=== PATIENT | female | born 2000 | race Caucasian/White ===

== ENCOUNTER → 2021-08-16 13:35 | Outpatient (BNVA) | payer OTHER, SELFPAY | PROVIDERS: Family Provider Nurse Practitioner Family; PCP Nurse Practitioner; Visit Provider Nurse Practitioner | DX: Z02.83 Encounter for blood-alcohol and blood-drug test (principal) | CPT/HCPCS: 80307 ==

== ENCOUNTER → 2022-12-12 08:51 | Outpatient (BNVA) | payer MEDICAID, SELFPAY | PROVIDERS: Family Provider Nurse Practitioner Family; PCP Family Medicine; Visit Provider Physician Assistant | DX: S52.122A Displaced fracture of head of left radius, initial encounter for closed fracture (principal); V93.89XA Other injury due to other accident on board unspecified watercraft, initial encounter | CPT/HCPCS: 73080 ==

== ENCOUNTER 2022-12-12 14:19 | Outpatient (CLI) | payer MEDICAID, SELFPAY | END 2022-12-12 14:20 | disposition home or self-care (01) | LOC: SPT 14:20 | PROVIDERS: Family Provider Nurse Practitioner Family; PCP Family Medicine; Visit Provider Physician Assistant | DX: Z46.89 Encounter for fitting and adjustment of other specified devices (principal); S52.125D Nondisplaced fracture of head of left radius, subsequent encounter for closed fracture with routine healing; X58.XXXD Exposure to other specified factors, subsequent encounter | CPT/HCPCS: 97760; L3761 ==

== ENCOUNTER 2022-12-20 11:39 | Outpatient (CLI) | payer MEDICAID, SELFPAY ==
--- NOTE | 2022-12-20 11:45 | MR_ITS ---
WS: [id number] MRI LEFT ELBOW WITHOUT CONTRAST. COMPARISON: Radiographs 12/09/2022 and 12/12/2022 Multiplanar, multisequence imaging is performed without contrast. Acute fractures noted involving the radial head and radial neck without significant displacement. The re does appear to be mild impaction along the fracture line. There is marrow edema extending into the proximal radius. Additional small amount of marrow edema in the lateral of the condyle. Very small a mount of marrow edema in the proximal ulna. No fracture in the ulna. High-grade tear involving the radial collateral ligament. There is a fluid gap between the radial col lateral ligament and the humerus. The common extensor tendon appears intact. There is additional abno rmal signal throughout the ulnar collateral ligament consistent with a high-grade tear. There is also increased T2 signal in the proximal attachment of the common flexor tendon suggesting a partial tear also. There is a lobulated cystic area along the anterior distal elbow extending over a length of 2.1 cm an d anterior posterior by 1.0 cm. This is adjacent to the biceps tendon. Biceps tendon appears intact. This may be contusion to the muscle. There several areas of increased signal in the medial elbow. Grecia pect this is contusion injury. There is additional soft tissue edema surrounding the elbow. Triceps t endon appears intact. No dislocation of the shoulder joint. IMPRESSION: 1. Nondisplaced radial head and neck fracture. 2. Radial collateral ligament tear. 3. Ulnar collateral ligament tear. Suspected minimal tear involving the common flexor tendon. 4. Soft tissue edema and contusions surrounding the elbow. Most significant contusion is in the media l elbow. 5. Patient would probably benefit from a CT of the LEFT elbow to evaluate for additional occult fract ures.
== END 2022-12-20 11:40 | disposition home or self-care (01) ==
LOC: RAD 11:40
PROVIDERS: Family Provider Nurse Practitioner Family; PCP Family Medicine; Visit Provider Physician Assistant
DX: S42.402A Unspecified fracture of lower end of left humerus, initial encounter for closed fracture (principal); X58.XXXA Exposure to other specified factors, initial encounter; S53.432A Radial collateral ligament sprain of left elbow, initial encounter
CPT/HCPCS: 73221